=== PATIENT | male | born 1940 | race Caucasian/White ===

== ENCOUNTER → 2018-01-05 | Day surgery (SDC) | payer OTHER ==
[~2018-01-05] MED LIST: ALDACTAZIDE 251 EACH PO; DIGOXIN125 MCG PO; FENOFIBRATE160 MG PO; GABAPENTIN100 MG PO; LIPITOR40 MG PO; LOSARTAN POTASS50 MG PO; METFORMIN HCL850 MG PO; OMEPRAZOLE20 MG PO; PERCOCET 5-3251 EACH PO; PLAVIX75 MG PO; PROBIOTIC1 EAC1 PO; SYNTHROID88 MCG PO; TAMS0.4C PO
== END | disposition home or self-care (01) ==
LOC: ADM 12-25 09:30 → AMB-ENDOS 05:32
DX: C20 Malignant neoplasm of rectum (principal); K43.5 Parastomal hernia without obstruction or gangrene; Z93.3 Colostomy status